=== PATIENT | male | born 1965 | race Caucasian/White ===

== ENCOUNTER 2022-07-27 23:12 | Emergency (ER) | payer SELFPAY ==
[2022-07-28] MEDS ORDERED: predniSONE 20 MG Tab PO STA (03:51)
[2022-07-28 04:19] VITALS: BP 147/99; PULSE 68
== END 2022-07-28 04:18 | disposition home or self-care (01) ==
LOC: JD.ED 23:12
DX: M54.12 Radiculopathy, cervical region (principal); I25.10 Atherosclerotic heart disease of native coronary artery without angina pectoris; I10 Essential (primary) hypertension; I25.2 Old myocardial infarction; E66.9 Obesity, unspecified; Z79.899 Other long term (current) drug therapy
CPT/HCPCS: 99283; J7512